=== PATIENT | male | born 1985 | race Caucasian/White ===

== ENCOUNTER 2017-12-19 23:18 | Emergency (ER) | payer SELFPAY ==
[2017-12-19 23:22] VITALS: TEMP 97.6
[2017-12-19 23:45] LABS: BASO % 0.2 % (0.0-2.0); EOS # 0.9 (0.0-0.7); EOS % 10.8 % (0-4.0); GRAN # 3.6 (1.4-6.5); GRAN % 41.2 % (42.2-75.2); HEMATOCRIT 42.8 % (42.0-52.0); HEMOGLOBIN 14.5 g/dl (13.5-18.0); LYMPH # 3.2 (1.2-3.4); MEAN CELL VOLUME 89 fl (80.0-100.0); MEAN CORPUSCULAR HEMOGLOBIN 30 pg (27.0-31.0); MEAN CORPUSCULAR HGB CONC 34 g/dl (33.0-37.0); MEAN PLATELET VOLUME 9.9 fl (7.4-10.4); MONO # 0.9 (0.1-0.6); MONO % 10.7 % (1.7-9.3); PLATELET COUNT 277 K/mm3 (130-400); RED BLOOD COUNT 4.83 M/mm3 (4.20-5.60); REDCELL DISTRIBUTION WIDTH-CV 12.3 % (11.5-14.5)
[2017-12-19] MEDS ORDERED: ZYRTEC ALLERGY10 MG PO (23:47)
[2017-12-19 23:51] LABS: ALANINE AMINOTRANSFERASE 26 U/L (21-72); ALBUMIN 4.3 gm/dL (3.5-5.0); ALKALINE PHOSPHATASE 54 U/L (50-136); ANION GAP 12 mmol/L (7-16); AST,SGOT 20 U/L (15-37); BILIRUBIN,TOTAL 0.3 mg/dL (0.0-1.0); BLOOD UREA NITROGEN 18 mg/dL (9-20); CARBON DIOXIDE 26 mmol/L (22-30); CHLORIDE 106 mmol/L (98-107); CREATINE KINASE 136 U/L (55-170); CREATININE, serum 0.81 mg/dL (0.66-1.25); GLUCOSE 95 mg/dL (74-106); LIPASE 112 U/L (23-300); POTASSIUM 4.3 mmol/L (3.4-5.0); SODIUM 143 mmol/L (137-145)
[2017-12-20 00:02] LABS: TROPONIN-I < 0.012 ng/mL (0.000-0.034)
[2017-12-20] MEDS ORDERED: PROTONIX 40MG T40 MG PO (01:07)
[2017-12-20 01:14] VITALS: BP 110/77; PULSE 65
== END 2017-12-20 01:35 | disposition home or self-care (01) ==
LOC: COL.ER 23:18
PROVIDERS: Emergency Medicine
DX: K21.9 Gastro-esophageal reflux disease without esophagitis (principal); R07.89 Other chest pain; F17.210 Nicotine dependence, cigarettes, uncomplicated
CPT/HCPCS: C9113; J1885; J7030

== ENCOUNTER 2018-05-16 17:55 | Emergency (ER) | payer SELFPAY ==
[~2018-05-16] VITALS: Ht 170.2 cm; Wt 63.6 kg
[~2018-05-16 17:55] MED LIST: PROTONIX 40MG T40 MG PO; ZYRTEC ALLERGY10 MG PO
[2018-05-16 18:00] VITALS: TEMP 99.8
[2018-05-16] MEDS ORDERED: BACTRIM DS 8001 TAB PO (19:22)
[2018-05-16] MEDS ORDERED: NORCO 325 MG-51 TAB PO (19:24)
[2018-05-16 19:58] VITALS: BP 121/72; PULSE 81
== END 2018-05-16 19:58 | disposition home or self-care (01) ==
LOC: COL.ER 17:55
DX: L02.415 Cutaneous abscess of right lower limb (principal); F17.210 Nicotine dependence, cigarettes, uncomplicated; Z87.442 Personal history of urinary calculi